=== PATIENT | male | born 1960 | race Caucasian/White ===

== ENCOUNTER 2016-06-18 15:30 | Outpatient (RCR) | payer BC ==
[~2016-06-18 15:30] MED LIST: 00186-0370-20 IH; ASPI325T6 PO; ASPIR-LOW81 MG PO; ASPIR-LOX325 MG PO; ASPIRIN 32325 MG/TAB PO; ASPIRIN E.C. 8181 MG PO; CARDI-OMEGA1000 MG PO; CELEBREX 200MG200 MG PO; CELEXA40 MG PO; CENTRUM SILVER1 TA1 PO; CIPRO 500MG TA500 MG PO; CLONAZEPAM1 M1 PO; COREG 3.123.125 MG/T PO; COREG 6.256.25 MG/TA PO; CORGARD 40M40 MG/TAB PO; CRESTOR PO; CRESTOR20 MG PO; EFFEXOR-XR150 MG PO; EPA FISH OIL1000 MG PO; FERRO-TIME325 MG PO; FERROUS SU325 MG/TAB PO; FLEXERIL 1010 MG/TAB PO; FLOMAX 0.40.4 MG/CAP PO; FLOMAX0.4 MG PO; FOLIC ACID 40400 MCG PO; GLUCOSAMINE & C1 CAP PO; GLUCOSAMINE/CHONDROI PO; HCTZ 25MG TAB25 MG PO; HCTZ 25MG25 MG PO; IMDUR 60MG60 MG/TAB PO; ISOSORBIDE MON120 MG PO; K-99595 MG PO; KLONOPIN 0.5MG0.5 MG PO; KLONOPIN 1MG1 MG PO; LEXAPRO20 MG PO; LOPRESSOR 225 MG/TAB PO; MICARDIS20 MG PO; MICARDIS80 MG PO; MICRO-K8 MEQ PO; MULTIPLE VITAMI1 CAP PO; MULTIPLE VITAMI1 TAB PO; NAPROSYN PO; NAPROSYN250 MG PO; NEURONTIN300 MG/CAP PO; NITROSTAT0.4 MG/TAB SL; NORCO 325 MG-7.1 TAB PO; PAXIL PO; PERCOCET 325 MG1 TA2 PO; PHENERGAN 25 TA25 MG PO; PHENERGAN25 MG RC; PHENERGAN25 MG/ML PO; PLAVIX 75MG TAB75 MG PO; POTASSIUM; POTASSIUM GLUCO80 MG PO; POTASSIUM GLUCONATE PO; PRILOSEC 20MG20 MG PO; REQUIP2 MG PO; ROPINIROLE HYDRO4 MG PO; RYZOLT100 MG PO; SENNA PLUS 50 M1 TA1 PO; SIMVASTATIN40 MG PO; TOPCARE ASPIRI325 MG PO; TOPROL XL25 MG PO; ULTRAM 50MG TAB50 MG PO; ULTRAM ER100 MG PO; ULTRAM100 MG PO; VITAMIN B COMPL1 T16 PO; VITAMIN B122500 MCG SL; VITAMIN C BUFF500 MG PO; VITAMIN C500 MG PO; VITAMIN E-400200 IU PO; ZOCOR40 MG PO; [UNRECOGNIZED DRUG - OTHER] PO
== END 2016-07-12 | disposition still patient (30) ==
LOC: MKS.ESL.PT
DX: Z47.89 Encounter for other orthopedic aftercare (principal); M25.861 Other specified joint disorders, right knee
CPT/HCPCS: G0283-GP

== ENCOUNTER 2016-07-25 17:07 | Emergency (ER) | payer BC ==
[2008-11-17 07:26] VITALS: BP 127/82
[~2016-07-25] VITALS: Ht 167.6 cm; Wt 102.7 kg
[2016-07-25 17:10] VITALS: TEMP 98.6
[2016-07-25 19:05] VITALS: BP 135/81; PULSE 66
== END 2016-07-25 19:05 | disposition home or self-care (01) ==
LOC: COL.ER 17:07
DX: R51 Headache (principal); I10 Essential (primary) hypertension; F17.210 Nicotine dependence, cigarettes, uncomplicated
CPT/HCPCS: J1200; J1885; J2765; J7030

== ENCOUNTER 2016-08-10 08:00 | Outpatient (RCR) | payer OTHER | END 2016-08-10 13:19 | disposition home or self-care (01) | LOC: MKS.ESL.PT 08:00 | DX: S76.811D Strain of other specified muscles, fascia and tendons at thigh level, right thigh, subsequent encounter (principal); X58.XXXD Exposure to other specified factors, subsequent encounter ==

== ENCOUNTER 2016-11-04 11:07 | Emergency (ER) | payer BC ==
[2008-11-17 07:26] VITALS: BP 127/82
[~2016-11-04] VITALS: Ht 167.6 cm; Wt 109.1 kg
[2016-11-04 11:14] VITALS: TEMP 98.6
[2016-11-04] MEDS ORDERED: PERCOCET 325 MG1 TA2 PO (13:58)
[2016-11-04] MEDS ORDERED: SILVADEN TOP (13:59)
[2016-11-04 14:07] VITALS: BP 119/74; PULSE 73
== END 2016-11-04 14:09 | disposition home or self-care (01) ==
LOC: COL.ER 11:07
DX: T20.26XA Burn of second degree of forehead and cheek, initial encounter (principal); T22.211A Burn of second degree of right forearm, initial encounter; X01.8XXA Other exposure to uncontrolled fire, not in building or structure, initial encounter; Y92.008 Other place in unspecified non-institutional (private) residence as the place of occurrence of the external cause

== ENCOUNTER → 2019-09-08 | Outpatient (CLI) | payer BC ==
[~2019-09-08] MED LIST changes: +SILVADEN TOP
== END ==
LOC: COL.VAS 09:13
DX: I65.29 Occlusion and stenosis of unspecified carotid artery (principal); I08.0 Rheumatic disorders of both mitral and aortic valves

== ENCOUNTER 2019-10-16 10:21 | Inpatient (IN) | payer BC ==
[~2019-10-16] VITALS: Ht 167.6 cm; Wt 118.2 kg
[2019-10-16 12:00] LABS: BASO % 0.5 % (0.0-2.0); EOS # 0.1 (0.0-0.7); EOS % 1.7 % (0-4.0); GRAN # 6.3 (1.4-6.5); GRAN % 76.1 % (42.2-75.2); HEMATOCRIT 41.2 % (42.0-52.0); HEMOGLOBIN 13.6 g/dl (13.5-18.0); LYMPH # 1.2 (1.2-3.4); LYMPH % 13.9 % (20.0-51.0); MEAN CELL VOLUME 85 fl (80.0-100.0); MEAN CORPUSCULAR HEMOGLOBIN 28 pg (27.0-31.0); MEAN CORPUSCULAR HGB CONC 33 g/dl (33.0-37.0); MEAN PLATELET VOLUME 11.9 fl (7.4-10.4); MONO # 0.6 (0.1-0.6); MONO % 7.6 % (1.7-9.3); PLATELET COUNT 198 K/mm3 (130-400); RED BLOOD COUNT 4.87 M/mm3 (4.20-5.60); REDCELL DISTRIBUTION WIDTH-CV 13.9 % (11.5-14.5)
[2019-10-16 12:06] LABS: INR 1.1 (0.8-3.0); PROTHROMBIN TIME 12.9 SECONDS (9.7-12.8)
[2019-10-16 12:08] LABS: STREP SCREEN NEGATIVE
[2019-10-16 12:17] LABS: ALANINE AMINOTRANSFERASE 16 U/L (4-49); ALBUMIN 4.1 gm/dL (3.5-5.0); ALKALINE PHOSPHATASE 82 U/L (50-136); ANION GAP 7 mmol/L (7-16); AST,SGOT 18 U/L (15-37); BILIRUBIN,TOTAL 1.1 mg/dL (0.0-1.0); BLOOD UREA NITROGEN 10 mg/dL (9-20); C-REACTIVE PROTEIN 5.2 mg/dL (0.0-0.9); CARBON DIOXIDE 30 mmol/L (22-30); CHLORIDE 98 mmol/L (98-107); CREATININE, serum 0.94 (0.66-1.25); GLUCOSE 118 mg/dL (74-106); LIPASE 71 U/L (23-300); SODIUM 135 mmol/L (137-145); TOTAL PROTEIN 7.4 gm/dL (6.4-8.2)
[2019-10-16 12:28] LABS: TROPONIN-I < 0.012 ng/mL (0.000-0.035)
[2019-10-16 12:51] LABS: COLLECTION METHOD CLEAN CATCH
[2019-10-16 13:02] LABS: PH 7 (5-8); SQUAMOUS EPITHELIAL None Seen /hpf; URINE APPEARANCE Clear; URINE BACTERIA None Seen /hpf; URINE BILIRUBIN Negative (NEGATIVE); URINE BLOOD Negative (NEGATIVE); URINE COLOR Yellow; URINE GLUCOSE Negative (NEGATIVE); URINE KETONE Negative (NEGATIVE); URINE LEUKOCYTE ESTERASE Negative (NEGATIVE); URINE NITRATE Negative (NEGATIVE); URINE PROTEIN(semi-quant) Negative (NEGATIVE); URINE RBC None Seen /hpf; URINE UROBILINOGEN Negative (NEGATIVE)
[2019-10-16] MEDS ORDERED: ZESTRIL 20MG TA20 MG PO (14:24)
[2019-10-16] MEDS ORDERED: TOPROL XL 50MG50 MG PO (14:25)
--- NOTE | 2019-10-16 17:35 | NUR ---
Report received from ED. Pt to go room 13
[2019-10-16 18:56] LABS: MAGNESIUM 1.9 mg/dL (1.6-2.3)
[2019-10-16 19:59] VITALS: BP 184/100; PULSE 69; TEMP 99.8
--- NOTE | 2019-10-16 20:00 | NUR ---
Resting in bed. Assessment complete. Right lung dimished and left lower lobe. Patient has dyspnea with ambulation to [facility]. Oxygen saturations remain 96% on room air. Heart sounds normal. Bowels active x4. Pulses present throughout. No edema noted at this time. INT right AC without complications. Patient reporting "feels like I cannot get my air completely in or out." Placed patient on 1 liter of oxygen via nasal cannula. Patient reported relief. Respiratory to provide patient with albuterol inhaler. Patient orientated to room and IMCU. All questions answered at this time. Call light in reach.
[2019-10-16 20:01] VITALS: BP 184/100; PULSE 69; TEMP 99.8
[2019-10-16] MEDS ORDERED: ASPIRIN 81M81 MG/TA2 PO (20:12)
[2019-10-16] MEDS ORDERED: LEXAPRO 10MG10 MG PO (20:15)
[2019-10-16] MEDS ORDERED: KLONOPIN2 MG PO (20:17)
[2019-10-16] MEDS ORDERED: MELATIN 3 MG-11 TAB PO (20:18)
[2019-10-16] MEDS ORDERED: HCTZ 25MG TAB25 MG PO (20:19)
[2019-10-16] MEDS ORDERED: PRINIVIL10 MG PO (20:19)
[2019-10-16] MEDS ORDERED: B-121000 MCG PO (20:21)
[2019-10-16] MEDS ORDERED: LOPRESSOR 225 MG/TAB PO (20:22)
[2019-10-16] MEDS ORDERED: PRILOSEC 20MG20 MG PO (20:23)
[2019-10-16 20:47] VITALS: BP 146/90
--- NOTE | 2019-10-16 21:45 | NUR ---
Patient had episode of severe ABD pain with diarrhea. Patient reports diarrhea not new. Spoke with Delmy TIRE ROOM SUPERVISOR- GI panel ordered. Patient ABD pain resolved with rest. Denies other needs at this time. Will monitor.
[2019-10-16 22:22] LABS: TRICYCLIC ANTIDEPRESS URINE NEGATIVE
[2019-10-16 23:47] VITALS: BP 153/85; PULSE 82; TEMP 99.6
[2019-10-17] VITALS (10 sets, daily range): BP systolic 149–172; BP diastolic 75–94; PULSE 61–76; TEMP 97.9–98.7
--- NOTE | 2019-10-17 00:03 | NUR ---
patient has bilateral eye discharge present. Purulent. Low grade temps at 99.6 and reports a headache. Spoke with Delmy HARGROVE. Orders added for polytrim eye drops and tylenol. Will provide to patient.
[2019-10-17 05:48] LABS: BASO # 0.1 (0.0-0.2); BASO % 0.8 % (0.0-2.0); EOS # 0.2 (0.0-0.7); EOS % 2.4 % (0-4.0); GRAN # 3.9 (1.4-6.5); GRAN % 59.4 % (42.2-75.2); HEMATOCRIT 37.2 % (42.0-52.0); HEMOGLOBIN 12.5 g/dl (13.5-18.0); LYMPH # 1.7 (1.2-3.4); LYMPH % 25.8 % (20.0-51.0); MEAN CELL VOLUME 84 fl (80.0-100.0); MEAN CORPUSCULAR HEMOGLOBIN 28 pg (27.0-31.0); MEAN CORPUSCULAR HGB CONC 34 g/dl (33.0-37.0); MEAN PLATELET VOLUME 11.5 fl (7.4-10.4); MONO # 0.7 (0.1-0.6); MONO % 11.1 % (1.7-9.3); PLATELET COUNT 169 K/mm3 (130-400); RED BLOOD COUNT 4.45 M/mm3 (4.20-5.60); REDCELL DISTRIBUTION WIDTH-CV 13.9 % (11.5-14.5)
[2019-10-17 05:52] LABS: CALCIUM 8.4 mg/dL (8.4-10.2); CREATININE, serum 0.89 (0.66-1.25); POTASSIUM 3.6 mmol/L (3.4-5.0)
--- NOTE | 2019-10-17 06:42 | NUR ---
Patient had x2 episodes of diarrhea throughout night. Required x1 dose of tylenol for headache. Started on polytrim for conjunctivitis. Otherwise uneventful. Resting in bed this AM. Call light in reach.
--- NOTE | 2019-10-17 07:34 | NUR ---
Report given to FABI Covington
--- NOTE | 2019-10-17 08:45 | NUR ---
Pt assessment complete. Pt sitting up in bed upon entry, he is A/O x4. Pt is on 1L O2 "for comfort", removed to urinate and patient's O2 sats 97%. Pt requesting to leave off for time being. Pt does become SOB on exertion. Reports a productive cough, unable to verify color/consistency. Pt reports having diarrhea and some nausea with eating. Also reports bilateral eyes itching and discharge. POC discussed with patient who verbalizes understanding. Will continue to monitor.
[2019-10-17] MEDS ORDERED: FOLIC ACID 11 MG/TA1 PO (13:43)
[2019-10-17] MEDS ORDERED: THIAMINE 1100 MG/TAB PO (13:43)
[2019-10-17] MEDS ORDERED: AMOXICILLIN 8751 TAB PO (13:43)
[2019-10-17] MEDS ORDERED: DORYX100 PO (13:44)
[2019-10-17] MEDS ORDERED: ANTI-DIARRHEAL2 MG PO (13:45)
--- NOTE | 2019-10-17 14:34 | NUR ---
Plan to return home to [place] with . 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 Patient reports that his PCP is Dr. Samuels. Patient indicated that his 's name is Faith and is . Client indicated that he has a few friends that could provide transport but do not want to if he is Covid positive. Patient shares that he does not have homehealth because they stopped coming out (interim) told him and his that they would temporarily cease services. Patient reports that he filled medications from [facility]. Patient ended up being issues a taxi voucher because his associates were afraid to pick him up although he was negative on the testing.
--- NOTE | 2019-10-17 14:45 | NUR ---
Discharge paperwork and instructions reviewed with patient. All questions answered at this time. IV to RAC dc'd catheter tip intact. Pt wheeled out of facility to taxicab on [address] with the use of a mask at this time.
== END 2019-10-17 14:46 | disposition home or self-care (01) | DRG 194 ==
LOC: COL.ER 10:21 → EU 12:41
PROVIDERS: Emergency Medicine; Nurse Practitioner Family; Physician Assistant; ADMIT Student in an Organized Health Care Education/Training Program
DX: J18.9 Pneumonia, unspecified organism (principal); E87.2 Acidosis; J44.0 Chronic obstructive pulmonary disease with (acute) lower respiratory infection; Z68.41 Body mass index [BMI] 40.0-44.9, adult; I25.10 Atherosclerotic heart disease of native coronary artery without angina pectoris; E66.9 Obesity, unspecified; F41.9 Anxiety disorder, unspecified; F32.9 Major depressive disorder, single episode, unspecified; I27.20 Pulmonary hypertension, unspecified; G25.81 Restless legs syndrome; M19.90 Unspecified osteoarthritis, unspecified site; E78.5 Hyperlipidemia, unspecified; A08.4 Viral intestinal infection, unspecified; G47.33 Obstructive sleep apnea (adult) (pediatric); R79.89 Other specified abnormal findings of blood chemistry; Z95.818 Presence of other cardiac implants and grafts; Z79.82 Long term (current) use of aspirin; Z87.891 Personal history of nicotine dependence
CPT/HCPCS: 99222-AI; 99239; A4216; C9113; J0456; J0696; J7030; J7050

== ENCOUNTER 2021-05-19 13:27 | Day surgery (SDC) | payer MEDICARE ==
[~2021-05-19] VITALS: Wt 100.4 kg
[2021-05-19] VITALS (11 sets, daily range): BP systolic 127–159; BP diastolic 53–70; PULSE 58–78; TEMP 97.9–99.3
[~2021-05-19 13:27] MED LIST changes: +AMOXICILLIN 8751 TAB PO; +ANTI-DIARRHEAL2 MG PO; +ASPIRIN 81M81 MG/TA2 PO; +B-121000 MCG PO; +DORYX100 PO; +FOLIC ACID 11 MG/TA1 PO; +KLONOPIN2 MG PO; +LEXAPRO 10MG10 MG PO; +MELATIN 3 MG-11 TAB PO; +PRINIVIL10 MG PO; +THIAMINE 1100 MG/TAB PO; +TOPROL XL 50MG50 MG PO; +ZESTRIL 20MG TA20 MG PO
--- NOTE | 2021-05-19 14:40 | NUR ---
Patient brought to room 350 from ED admissions at 1415. REports increase in SOB and chest pain today, direct admit from Dr. Barr office. VSS. Alert, oriented x4, makes needs known. Oriented to room and call light system. LAb in room for draw. RT in room performing EKG. Giana Spence APRN aware of patients arrival, orders received. Pt signs consent for heart catheterization, reports he is very familiar with this procedure. Call light within reach.
[2021-05-19 14:46] LABS: HEMATOCRIT 38.6 % (42.0-52.0); MEAN CELL VOLUME 81 fl (80.0-100.0); MEAN CORPUSCULAR HEMOGLOBIN 27 pg (27.0-31.0); MEAN CORPUSCULAR HGB CONC 34 g/dl (33.0-37.0); MEAN PLATELET VOLUME 11.7 fl (7.4-10.4); PLATELET COUNT 181 K/mm3 (130-400); RED BLOOD COUNT 4.76 M/mm3 (4.20-5.60)
[2021-05-19] MEDS ORDERED: VITAMIN C500 MG PO (14:51)
[2021-05-19 14:58] LABS: CALCIUM 8.8 mg/dL (8.4-10.2); CREATININE, serum 0.98 mg/dL (0.72-1.25); POTASSIUM 3.6 mmol/L (3.5-4.5)
[2021-05-19 14:59] LABS: PROTHROMBIN TIME 10.5 SECONDS (9.7-12.8)
[2021-05-19 15:02] LABS: PARTIAL THROMBOPLASTIN TIME 27.6 SECONDS (26.0-37.0)
--- NOTE | 2021-05-19 15:33 | NUR ---
SEE MERGE FOR ALL MEDICATION ADMINISTRATION TIMES/DOSAGES AND INTRA/POST SEDATION ASSESSMENT.
[2021-05-19 15:59] LABS: COLLECTION METHOD CLEAN CATCH
[2021-05-19 16:07] LABS: MUCOUS Present (NOT PRESENT); PH 5 (5-8); SQUAMOUS EPITHELIAL None Seen /hpf (0-10); URINE APPEARANCE Clear (CLEAR/HAZY); URINE BACTERIA None Seen (NONE SEEN); URINE BILIRUBIN Negative (NEGATIVE); URINE BLOOD Negative (NEGATIVE); URINE COLOR Yellow (YELLOW); URINE GLUCOSE Negative (NEGATIVE); URINE KETONE Negative (NEGATIVE); URINE LEUKOCYTE ESTERASE Negative (NEGATIVE); URINE NITRATE Negative (NEGATIVE); URINE PROTEIN(semi-quant) Negative (NEGATIVE); URINE RBC 0-2 /hpf (0-2); URINE UROBILINOGEN Negative (NEGATIVE); URINE WBC 0-2 /hpf (0-2)
[2021-05-19 16:15] LABS: TRICYCLIC ANTIDEPRESS URINE NEGATIVE
--- NOTE | 2021-05-19 19:00 | NUR ---
Pt. sitting up in bed. Pt. is A&OX3, assessment complete. INT to rt. wrist patent. TR band to rt. radial cath site. Deflation process started at this time. Removed 2 ml of air from band. No sign of bleeding. Pt. denies pain or other needs, call light within reach.
--- NOTE | 2021-05-19 19:16 | NUR ---
Patient returned post op heart cath at 1700. Right radial site with TR band in place. No bleeding or hematoma noted under TR band. Right hand with sensation intact, no numbness or tingling. TR band reviewed with patient. No c/o at this time.
--- NOTE | 2021-05-19 20:15 | NUR ---
Radial cuff completely deflated at this time. Will monitor for bleeding.
--- NOTE | 2021-05-19 20:30 | NUR ---
Pt. has tolerated the deflation of the rt. radial cuff. Cuff removed at this time. cotton ball and bandaid applied. Pt. has met discharge criteria. Pt. given discharge paper work and education. Pt. meds reviewed with the pt. Pt. voices understanding. INT discontinued from rt. hand. Pt. dressed and escorted out by FABI Singleton.
== END 2021-05-19 20:35 | disposition home or self-care (01) ==
LOC: SDCO 13:27 → EDSTATUS 13:27 → SURG 13:28 → SDCO 15:24 → SURG 15:25 → SDCO 15:25 → SURG 20:35 → SDCO 20:35
PROVIDERS: Internal Medicine Interventional Cardiology; Nurse Practitioner
DX: I25.10 Atherosclerotic heart disease of native coronary artery without angina pectoris (principal); Z79.02 Long term (current) use of antithrombotics/antiplatelets; Z79.82 Long term (current) use of aspirin; Z79.899 Other long term (current) drug therapy; I10 Essential (primary) hypertension; E78.5 Hyperlipidemia, unspecified
CPT/HCPCS: G0379; J1644; J2250; J3010; J7030; Q9967

== ENCOUNTER 2021-05-30 14:02 | Emergency (ER) | payer MEDICARE ==
[~2021-05-30] VITALS: Ht 167.6 cm; Wt 97.3 kg
[2021-05-30 14:35] VITALS: TEMP 98.2
[2021-05-30] MEDS ORDERED: PROTONIX 40MG T40 MG PO ×2 (15:41)
[2021-05-30] MEDS ORDERED: LACTULOSE10 GM/153 PO (15:41)
[2021-05-30 16:36] LABS: HEMATOCRIT 41.7 % (42.0-52.0); HEMOGLOBIN 13.9 g/dl (13.5-18.0); MEAN CELL VOLUME 81 fl (80.0-100.0); MEAN CORPUSCULAR HEMOGLOBIN 27 pg (27.0-31.0); MEAN CORPUSCULAR HGB CONC 33 g/dl (33.0-37.0); PLATELET COUNT 222 K/mm3 (130-400); RED BLOOD COUNT 5.17 M/mm3 (4.20-5.60); REDCELL DISTRIBUTION WIDTH-CV 15.5 % (11.5-14.5)
[2021-05-30 16:53] LABS: BAND 2 % (0-10); BILIRUBIN,TOTAL 0.5 mg/dL (0.2-1.2); CALCIUM 9.1 mg/dL (8.4-10.2); CREATININE, serum 0.89 mg/dL (0.72-1.25); LYMPHOCYTE 19 % (20.0-51.0); METAMYELOCYTE 1 % (0-0); NEUTROPHILS 72 % (42.0-75.2); PLATELET ESTIMATE NORMAL (NORMAL); POTASSIUM 3.9 mmol/L (3.5-4.5); TOTAL PROTEIN 7.4 gm/dL (6.2-8.1)
[2021-05-30] MEDS ORDERED: ATIVAN 0.50.5 MG/TAB PO (18:20)
[2021-05-30 20:24] VITALS: BP 180/105; PULSE 77
== END 2021-05-30 20:25 | disposition home or self-care (01) ==
LOC: COL.ER 14:02
PROVIDERS: Family Medicine
DX: R07.9 Chest pain, unspecified (principal); R06.00 Dyspnea, unspecified; I10 Essential (primary) hypertension; J44.9 Chronic obstructive pulmonary disease, unspecified; E66.9 Obesity, unspecified; F32.A Depression, unspecified; F41.9 Anxiety disorder, unspecified; I25.10 Atherosclerotic heart disease of native coronary artery without angina pectoris; Z68.34 Body mass index [BMI] 34.0-34.9, adult; Z20.822 Contact with and (suspected) exposure to COVID-19; Z79.82 Long term (current) use of aspirin; Z79.899 Other long term (current) drug therapy
CPT/HCPCS: J2060

== ENCOUNTER → 2021-06-16 | Outpatient (CLI) | payer MEDICARE ==
[~2021-06-16] MED LIST changes: +ATIVAN 0.50.5 MG/TAB PO; +LACTULOSE10 GM/153 PO; +PROTONIX 40MG T40 MG PO
== END ==
LOC: COL.RAD 12:42
DX: I65.21 Occlusion and stenosis of right carotid artery (principal)
CPT/HCPCS: Q9967

== ENCOUNTER → 2021-09-20 | Outpatient (CLI) | payer MEDICARE | LOC: COL.RAD 11:25 | DX: R18.8 Other ascites (principal); K74.60 Unspecified cirrhosis of liver; N18.2 Chronic kidney disease, stage 2 (mild) ==

== ENCOUNTER 2021-09-26 14:45 | Outpatient (RCR) | payer MEDICARE | END 2021-09-28 | LOC: MKS.ESL.PT | DX: I63.231 Cerebral infarction due to unspecified occlusion or stenosis of right carotid arteries (principal) ==

== ENCOUNTER 2021-10-27 14:00 | Outpatient (RCR) | payer MEDICARE | END 2021-10-28 | LOC: MKS.ESL.PT | DX: G45.9 Transient cerebral ischemic attack, unspecified (principal) | CPT/HCPCS: G0283-GP ==

== ENCOUNTER 2021-11-10 14:00 | Outpatient (RCR) | payer MEDICARE ==
[2021-11-24] MEDS ORDERED: AMOXICILLIN 8751 TAB PO (17:12)
[2021-11-24] MEDS ORDERED: NORCO 325 MG-51 TAB PO (17:12)
== END 2021-11-28 ==
LOC: MKS.ESL.PT
DX: G45.9 Transient cerebral ischemic attack, unspecified (principal)

== ENCOUNTER 2021-11-24 13:49 | Emergency (ER) | payer MEDICARE ==
[~2021-11-24] VITALS: Ht 167.6 cm; Wt 102.3 kg
[2021-11-24 14:02] VITALS: TEMP 98.1
[2021-11-24] MEDS ORDERED: AMOXICILLIN 8751 TAB PO (17:12)
[2021-11-24] MEDS ORDERED: NORCO 325 MG-51 TAB PO (17:12)
[2021-11-24 17:59] VITALS: BP 120/72
[2021-11-24 18:01] VITALS: PULSE 72
== END 2021-11-24 17:27 | disposition home or self-care (01) ==
LOC: COL.ER 13:49
DX: S51.851A Open bite of right forearm, initial encounter (principal); Z87.891 Personal history of nicotine dependence; Z23 Encounter for immunization; Z28.310 Unvaccinated for COVID-19; W54.0XXA Bitten by dog, initial encounter